=== PATIENT | female | born 1955 ===

== ENCOUNTER 2021-12-12 11:45 | Inpatient (IN) | payer OTHER ==
[~2021-12-12] VITALS: Ht 157.5 cm; Wt 62.6 kg
[2021-12-12] MEDS ORDERED: PAXIL40 MG PO (14:06)
[2021-12-12] MEDS ORDERED: RESTORIL30 M1 PO (14:07)
[2021-12-12] MEDS ORDERED: PAXIL20 MG PO (14:07)
[2021-12-14] MEDS ORDERED: CLORAZEPATE D3.75 MG (08:04)
== END 2021-12-16 10:17 | disposition home or self-care (01) | DRG 741 ==
LOC: SURG 12-13 09:34 → O/R 12-13 09:34 → OB/GYN 12-13 11:45 → SURG 12-13 20:44 → SURG-SUITE 12-14 17:19
PROVIDERS: ADMIT Specialist; ATTEND Specialist
PROC: 0UT20ZZ Resection of Bilateral Ovaries, Open Approach (ICD-10-PCS; 2021-12-13)
PROC: 0UT70ZZ Resection of Bilateral Fallopian Tubes, Open Approach (ICD-10-PCS; 2021-12-13)
PROC: 0UT90ZZ Resection of Uterus, Open Approach (ICD-10-PCS; principal; 2021-12-13 17:00)
DX: C53.0 Malignant neoplasm of endocervix (principal); C54.1 Malignant neoplasm of endometrium; N87.1 Moderate cervical dysplasia

== ENCOUNTER 2022-07-09 12:23 | Outpatient (CLI) | payer OTHER ==
[~2022-07-09 12:23] MED LIST: CLORAZEPATE D3.75 MG; PAXIL20 MG PO; PAXIL40 MG PO; RESTORIL30 M1 PO
== END 2022-07-09 12:32 | disposition home or self-care (01) ==
LOC: RAD 12:23
PROVIDERS: ATTEND Surgery
DX: K59.00 Constipation, unspecified (principal)